=== PATIENT | female | born 2005 | race Caucasian/White ===

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

== ENCOUNTER 2023-10-15 02:28 | Outpatient (CLI) | payer OTHER, SELFPAY | END 2023-10-15 02:29 | disposition home or self-care (01) | LOC: AMB 10-19 18:13 | PROVIDERS: Visit Provider Emergency Medicine | DX: F41.9 Anxiety disorder, unspecified (principal); F10.10 Alcohol abuse, uncomplicated | CPT/HCPCS: A0998 ==

== ENCOUNTER 2025-02-16 02:30 | Outpatient (CLI) | payer OTHER, SELFPAY | END 2025-02-16 02:31 | disposition home or self-care (01) | LOC: AMB 02-18 08:45 | PROVIDERS: Visit Provider Emergency Medicine | DX: F10.129 Alcohol abuse with intoxication, unspecified (principal) | CPT/HCPCS: A0998 ==